=== PATIENT | female | born 1960 | race Caucasian/White ===

== ENCOUNTER 2025-08-14 00:35 | Emergency (ER) | payer BC, OTHER ==
[~2025-08-14] VITALS: Ht 165.1 cm; Wt 81.8 kg
[~2025-08-14 00:35] MED LIST: ALPR-623 PO; AMLO5TAB10 PO; FLUT16SP26 BOTHNARES; LEVO75TA PO; LOSA1TAB39 PO; METH54TA12 PO; POTA8CAP20 PO; PRED2.5T4 PO; TOPI25CA12 PO; VENL150C58 PO; VENL75CA55 PO
[2025-08-14 01:04] VITALS: PULSE 68
[2025-08-14] MEDS: HYDROcodone/acetaminophen 5mg/325mg tablet PO ONE (01:40)
[2025-08-14] MEDS: ketorolac trometh 15mg/ml vial 15 MG/ML ML IM ONE (01:41)
--- NOTE | 2025-08-14 02:00 | Physician Documentation ---
History of Present Illness ~ Chief Complaint: Mechanical Fall Stated Complaint: FALL;BODY PAIN Time Seen by MD: 00:53 Mode of Arrival: Wheelchair HPI 64-year-old female presenting with a fall and left-sided rib pain She tells me that she was drinking wine tonight, and when she went to the bathroom she tripped and fell, landing on her left ribs directly on the toilet. Her granddaughter states that she actually broke the toilet. She had severe pain in multiple ribs in the left side of her chest. It is worse with movement and breathing. No head or neck injury. No abdominal pain. No extremity injury. She is not on blood thinners Tetanus within 5 Years?: Yes Medication Reconciliation Allergies: Coded Allergies: Penicillins (Unverified Allergy, Unknown, 08/14/25) codeine (Unverified Allergy, Unknown, 08/14/25) Scheduled Alprazolam* (Xanax*), 1 TAB PO QDAY PRN, (Reported) Amlodipine Besylate (Amlodipine Besylate), 1 TAB PO DAILY, (Reported) Fluticasone Propionate (Fluticasone Propionate), 2 SPRAYS BOTHNARES DAILY, (Reported) Levothyroxine Sodium* (Synthroid*), 1 TAB PO DAILY, (Reported) Losartan/Hydrochlorothiazide (Losartan-Hctz 100-25 Mg Tab), 1 TAB PO DAILY, (Reported) Methylphenidate HCl (Methylphenidate ER), 1 TAB PO DAILY, (Reported) Potassium Chloride 8 MEQ* (Slow-K 8 Meq*), 1 TAB PO DAILY, (Reported) Prednisone (Prednisone), 2 MG PO taper, (Reported) Topiramate (Topiramate ER), 1 TAB PO BID, (Reported) Venlafaxine Hcl (Venlafaxine Hcl Er), 1 CAP PO DAILY, (Reported) Venlafaxine Hcl (Effexor Xr), 1 CAP PO DAILY Scheduled PRN Hydrocodone Bit/Acetaminophen 5/325 MG (Hope 5/325 MG), 1 TAB PO Q8H PRN for pain Past Medical History Past Medical History: Headache, Hypothyroidism, Anxiety, Depression Past Surgical History: abdominal surgery, cholecystectomy Smoking Status: Never smoker Alcohol Use: Occasionally Drug Use: none Lives with: Spouse Lives In: Home Occupation: employed Review of Systems Constitutional: Denies: fever Cardiovascular: Reports: chest pain Neurological: Denies: headache Physical Exam Vital Signs: Heart Rate: 68, Respiratory Rate: 14, BP: 127/81, Pulse Oximetry: 94, Weight: 81.820 Physical Exam General: This is a pleasant middle-aged woman, granddaughter at bedside HEENT: Atraumatic, oropharynx is moist Heart: Regular rate and rhythm, normal-appearing peripheral perfusion Lungs: Breath sounds are clear although she is taking shallow respirations and splinting with deep inspirations. Chest wall: She has tenderness on palpation over the lateral left chest wall, without obvious crepitus Abdomen: Soft, nondistended, nontender all quadrants including in the left upper quadrant Extremities: Warm and well-perfused, no traumatic findings Neuro: Alert and oriented Psychiatric: Pleasant, appears uncomfortable but is intermittently laughing Progress Results/Orders Results/Orders Orders - MATTHEW GOODWIN MD Ct Chest (08/14/25 01:45) Incentive Spirometer Teaching (08/14/25 02:36) Completed Orders - MATTHEW GOODWIN MD Ct Chest (08/14/25 01:45) Ketorolac Trometh 15mg/Ml Vial (Toradol (08/14/25 01:25) Lidocaine 5% Patch (Lidoderm 5% Patch) (08/14/25 01:25) Hydrocodone/Apap 5/325mg Tab (Hope 5/32 (08/14/25 01:25) Oxycodone Immed Release Tablet (Oxy Ir T (08/14/25 03:15) Medications Received in ER Medications (Trade) Dose Ordered Sig/[place] Route PRN Reason Start Time Stop Time Status Last Admin Dose Admin (Toradol injection) 15 mg ONCE ONCE IM 08/14/25 01:25 08/14/25 01:27 DC 08/14/25 01:41 15 MG (Lidoderm 5% Patch) 1 patch ONCE ONCE TP 08/14/25 01:25 08/14/25 01:27 DC 08/14/25 01:42 1 PATCH (Hope 5/325mg tablet) 1 tab ONCE ONCE PO 08/14/25 01:25 08/14/25 01:27 DC 08/14/25 01:40 1 TAB (OXY IR tablet) 5 mg ONCE ONCE PO 08/14/25 03:15 08/14/25 03:22 DC 08/14/25 03:32 5 MG Vital Signs 08/14/25 08/14/25 08/14/25 00:39 00:59 01:04 Pulse 68 68 Resp 16 14 B/P (MAP) 130/81 127/81 (96) Pulse Ox 93 94 EKG/XRAY/CT/US/VASC/MRI CT : Impression I personally interpreted the CT scan, and this shows 3 rib fractures, no pneumothorax Medical Decision Making Additional information obtaine: family Findings Granddaughter provides history Differential Dx:Considerations: Include: Closed head injury, Fracture(s), Intraabdominal injury, Pneumothorax, Pulmonary contusion, Contusion(s) Additional Comment The patient presents with a fall and left-sided chest wall pain. Her exam is concerning for possible multiple rib fractures. She has no evidence of head or neck injury. No abdominal tenderness to suggest intra-abdominal injury. No extremity injuries. She was given multimodal pain management. Given concern for multiple rib fractures we proceeded with a CT scan of the chest. CT shows 3 rib fractures but no pneumothorax or other complications. She was given an incentive spirometer, a prescription for pain medicine, and home care instructions. Return precautions given. Departure Time of Disposition: 03:02 Disposition: 01 HOME / SELF CARE / HOMELESS Impression: Primary Impression: Multiple rib fractures Condition: Stable Discharge Instructions: Rib Fracture Referrals: NO PRIMARY CARE PROVIDER (PCP) Prescriptions Hydrocodone Bit/Acetaminophen 5/325 MG (Hope 5/325 MG) 5 Mg/325 Mg Tablet 1 TAB PO Q8H PRN for pain for 7 Days, #21 TAB Prov: MATTHEW GOODWIN MD 08/14/25 Education Educated: Patient, Family Educated regarding: diagnosis, treatment, need for follow up Signature Scribe Signature: [email or web address] Attestation: MATTHEW Gutierrez MD Aug 14, 2025 02:00
--- NOTE | 2025-08-14 02:34 | RADIOLOGY REPORT ---
PROCEDURE: CT CT CHEST Reason for study/Clinical History: Fall, left-sided rib pain in multiple ribs, shortness of breath Comparison Study: None TECHNIQUE: Multidetector CT of the chest was performed from the lung apices to the upper abdomen without the use of intravenous contract. Axial, coronal and sagittal multiplanar reformats were performed. Radiation Dose Information: CT Dose: CTDI volume is 18.36 mGy. Dose-length product is 724.21 mGy*cm The dose indicators for CT are the volume Computed Tomography (CT) Dose Index (CTDIvol) and the Dose Length Product (DLP), and are measured in units of mGy and mGy-cm, respectively. These indicators are not patient dose, but values generated from the CT scanner acquisition factors. The report includes radiation exposure data for exposures received during this examination. FINDINGS: Lower neck: Unremarkable. Lungs: No focal consolidation. No suspicious pulmonary nodule. Heart/Vascular Structures: Normal heart size. No pericardial effusion. Lymph Nodes: No adenopathy Pleura: No pleural effusion or significant pneumothorax. Musculoskeletal: Nondisplaced lateral left 9th and posterior left 10th and 11th rib fractures. Soft tissues: Normal. Upper abdomen: Small fat containing hernia defect within the right ventral abdominal wall. Limited portions of the upper abdomen are otherwise unremarkable status post cholecystectomy. IMPRESSION: 1. Nondisplaced lateral left 9th and posterior left 10th and 11th rib fractures. 2. No other acute intrathoracic abnormality. Radiation optimization: All CT scans at this facility use at least one of these dose optimization techniques: automated exposure control mA and/or kV adjustment per patient size (includes targeted exams where dose is matched to clinical indication) or iterative reconstruction.
[2025-08-14] MEDS ORDERED: HYDR-3965 PO (03:04)
[2025-08-14] MEDS: oxyCODONE IR 5mg (immed. release) tablet PO ONE (03:32)
[2025-08-14 04:38] VITALS: BP 126/76; RESP 14; O2SAT 93
== END 2025-08-14 04:40 | disposition home or self-care (01) ==
LOC: ER 00:36
DX: S22.42XA Multiple fractures of ribs, left side, initial encounter for closed fracture (principal); E03.9 Hypothyroidism, unspecified; Z88.0 Allergy status to penicillin; F41.9 Anxiety disorder, unspecified; F32.A Depression, unspecified; Z72.89 Other problems related to lifestyle; Z88.5 Allergy status to narcotic agent; Z90.49 Acquired absence of other specified parts of digestive tract; Z79.899 Other long term (current) drug therapy; W01.0XXA Fall on same level from slipping, tripping and stumbling without subsequent striking against object, initial encounter; Y93.89 Activity, other specified; Y92.89 Other specified places as the place of occurrence of the external cause; Y99.8 Other external cause status
CPT/HCPCS: 71250; 96372; 99285; J1885

== ENCOUNTER 2025-08-21 13:04 | Emergency (ER) | payer BC ==
[~2025-08-21] VITALS: Ht 165.1 cm; Wt 81.8 kg
[~2025-08-21 13:04] MED LIST changes: +HYDR-3965 PO
[2025-08-21 13:08] VITALS: BP 153/94; PULSE 79; TEMP 98.9; O2SAT 96
[2025-08-21] MEDS ORDERED: HYDR-3965 PO (14:36)
[2025-08-21] MEDS ORDERED: IBUP-1984 PO (14:36)
[2025-08-21] MEDS ORDERED: TIZA4TAB11 PO (14:36)
--- NOTE | 2025-08-21 14:39 | Physician Documentation ---
History of Present Illness ~ Chief Complaint: Rib pain Stated Complaint: RIB PAIN Time Seen by MD: 14:17 HPI 64-year-old female with known multiple rib fractures Re presents to the emergency department for additional prescription pain management while she continues to heal. States she does well while on pain management and actually able to use her incentive spirometer. Denies fever, shortness a breath or hemoptysis. Otherwise is doing well she is visiting from out of the area in his under the care of her daughters. Tetanus within 5 Years?: Yes Allergies: Coded Allergies: Penicillins (Unverified Allergy, Unknown, 08/21/25) codeine (Unverified Allergy, Unknown, 08/21/25) Active Prescriptions See Medication Reconciliation Form. Medication Reconciliation Scheduled Alprazolam* (Xanax*), 1 TAB PO QDAY PRN, (Reported) Amlodipine Besylate (Amlodipine Besylate), 1 TAB PO DAILY, (Reported) Fluticasone Propionate (Fluticasone Propionate), 2 SPRAYS BOTHNARES DAILY, (Reported) Hydrocodone Bit/Acetaminophen 5/325 MG ([place] 5/325 MG), 1 TAB PO Q6H Ibuprofen* (Motrin*), 1 TAB PO Q8H Levothyroxine Sodium* (Synthroid*), 1 TAB PO DAILY, (Reported) Losartan/Hydrochlorothiazide (Losartan-Hctz 100-25 Mg Tab), 1 TAB PO DAILY, (Reported) Methylphenidate HCl (Methylphenidate ER), 1 TAB PO DAILY, (Reported) Potassium Chloride 8 MEQ* (Slow-K 8 Meq*), 1 TAB PO DAILY, (Reported) Prednisone (Prednisone), 2 MG PO taper, (Reported) Tizanidine Hcl (Zanaflex), 1 TAB PO Q12H Topiramate (Topiramate ER), 1 TAB PO BID, (Reported) Venlafaxine Hcl (Venlafaxine Hcl Er), 1 CAP PO DAILY, (Reported) Venlafaxine Hcl (Effexor Xr), 1 CAP PO DAILY Scheduled PRN Hydrocodone Bit/Acetaminophen 5/325 MG ([place] 5/325 MG), 1 TAB PO Q8H PRN for pain Past Medical History Past Medical History: Headache, Hypothyroidism, Anxiety, Depression Past Surgical History: abdominal surgery, cholecystectomy Alcohol Use: Occasionally Drug Use: none Lives with: Spouse Lives In: Home Occupation: employed Review of Systems All Other Systems at this time: Reviewed and Negative Musculoskeletal: Reports: see HPI Physical Exam Vital Signs: RN Vital Signs have been reviewed: Yes, Temperature: 98.9, Source: Oral, Heart Rate: 79, Respiratory Rate: 18, BP: 153/94, Pulse Oximetry: 96, Weight: 81.820 Oxygen Flow Rate: 0 General Appearance: alert, moderate distress EENT: PERRL/EOMI Respiratory: lungs clear Chest: tender (Left lateral) Gastrointestinal: non-tender Skin: normal color Neurologic: oriented x4 Psychiatric: normal mood/affect Progress Results/Orders Results/Orders Vital Signs 08/21/25 13:08 Temp 98.9 Pulse 79 Resp 18 B/P (MAP) 153/94 Pulse Ox 96 O2 Flow Rate 0 Medical Decision Making Additional information obtaine: N/A Findings 64-year-old female who is status post closed rib fractures seven days ago continues to have discomfort. Needs breakthrough medication that she continues to heal. No clinical suspicion for house, subcutaneous air pneumothorax or unstable chest wall. Safely discharged with prescriptions for instructions for aftercare. Differential Dx:Considerations: Include: Chest wall contusion, Flail chest, Pneumothorax, Pulmonary contusion, Rib fracture Departure Disposition: HOME / SELF CARE / HOMELESS Impression: Primary Impression: Fracture of rib Qualified Codes: S22.49XD - Multiple fractures of ribs, unspecified side, subsequent encounter for fracture with routine healing Condition: Stable Discharge Instructions: Rib Fracture Additional Instructions: Please begin pain management as directed and consider transitioning from opiate pain management to anti-inflammatory and muscle relaxant. Continue with your incentive spirometry use. Return to the emergency department for fever cough or bloody sputum. Thank you for visiting [facility]. Have a roderick Tsang. Referrals: NO PRIMARY CARE PROVIDER (PCP) Prescriptions Tizanidine Hcl (ZANAFLEX) 4 Mg Tablet 1 TAB PO Q12H for Pain for 30 Days, #30 TAB 0 Refills Prov: MATTHEW WATTS PAC 08/21/25 Hydrocodone Bit/Acetaminophen 5/325 MG ([place] 5/325 MG) 5 Mg/325 Mg Tablet 1 TAB PO Q6H for pain, #16 TAB Prov: MATTHEW WATTS PAC 08/21/25 Ibuprofen* (Motrin*) 400 Mg Tablet 1 TAB PO Q8H for pain or fever for 10 Days, #30 TAB Prov: MATTHEW WATTS 08/21/25 Education Educated: Patient, Family Educated regarding: diagnosis, treatment, prognosis, need for follow up Signature Scribe Signature: . Attestation: . MATTHEW WATTS Aug 21, 2025 14:39
[2025-08-21 14:51] VITALS: RESP 16
== END 2025-08-21 14:54 | disposition home or self-care (01) ==
LOC: ER 13:04
DX: S22.32XA Fracture of one rib, left side, initial encounter for closed fracture (principal); F32.A Depression, unspecified; E03.9 Hypothyroidism, unspecified; F41.9 Anxiety disorder, unspecified; Z88.0 Allergy status to penicillin; Z88.5 Allergy status to narcotic agent; Z79.899 Other long term (current) drug therapy; Z79.891 Long term (current) use of opiate analgesic; Z90.49 Acquired absence of other specified parts of digestive tract; Z72.89 Other problems related to lifestyle; X58.XXXA Exposure to other specified factors, initial encounter; Y93.89 Activity, other specified; Y92.89 Other specified places as the place of occurrence of the external cause; Y99.8 Other external cause status
CPT/HCPCS: 99283